=== PATIENT | male | born 1995 | race Caucasian/White ===

== ENCOUNTER 2023-06-18 02:27 | Emergency (ER) | payer OTHER, SELFPAY ==
--- NOTE | ~2023-06-18 | XR_ITS ---
Left wrist Technique: PA, oblique, lateral, and ulnar deviation views were obtained. Clinical History: Pain Findings: No acute fracture or dislocation is seen. Osseous alignment is anatomic. Joint spaces are p reserved. Soft tissues are unremarkable. Impression: Unremarkable left wrist radiographs. Reviewed, dictated and finalized at location . Impression: Unremarkable left wrist radiographs.
[2023-06-18 02:30] VITALS: BP 116/76; PULSE 64; RESP 15; TEMP 36.4; O2SAT 100
--- NOTE | 2023-06-18 03:07 | ED.GENADULT ---
HPI - General Adult General Chief complaint: Extremity Injury, Upper Stated complaint: L wrist pain Time Seen by Provider: 06/18/23 02:44 History of Present Illness HPI narrative: Patient 27-year-old gentleman who presents the emergency department with chief complaint of left wrist pain. The patient reports that he injured his wrist about a month ago when playing soccer where he hyperextended his wrist the patient states that it was starting to get little bit better he had been using a compression type wrist brace and noticed over the last several days and has been using it more his wrist started to hurt more patient reports that the pain is worse with movement and improved with rest. Related Data Allergies Allergy/AdvReac Type Severity Reaction Status Date / Time No Known Allergies Allergy Verified 06/18/23 02:34 Review of Systems Review of Systems: A 10 system review of systems was completed on the patient and is negative except for what is stated in the HPI. Nursing and ancillary documentation was reviewed. Exam Narrative: GENERAL: Well-appearing, well-nourished, and in no acute distress. HEAD: Normocephalic, atraumatic. EYES: PERRLA and EOMI. ENT: Nares clear, no rhinorrhea or epistaxis. Mucous membranes moist. NECK: Supple. CHEST: Clear to auscultation. No respiratory distress. HEART: Regular rate and rhythm. No murmur heard. Normal peripheral pulses. ABDOMEN: Soft, nontender, nondistended, normal active bowel sounds. EXTREMITIES: Normal range of motion in all extremities except for left wrist. There is tenderness to palpation in the anatomical snuffbox . No edema. SKIN: Warm, dry, no rash. NEURO: No focal deficits. Alert and oriented x3. PSYCH: Normal mood and affect. Course Vital Signs Vital signs: Vital Signs Temperature 36.4 C 06/18/23 02:30 Pulse Rate 64 06/18/23 02:30 Respiratory Rate 15 06/18/23 02:30 Blood Pressure 116/76 06/18/23 02:30 Pulse Oximetry 100 06/18/23 02:30 Oxygen Delivery Room Air 06/18/23 02:30 Temperature 36.4 C 06/18/23 02:30 Pulse Rate 64 06/18/23 02:30 Respiratory Rate 15 06/18/23 02:30 Blood Pressure 116/76 06/18/23 02:30 Pulse Oximetry 100 06/18/23 02:30 Oxygen Delivery Room Air 06/18/23 02:30 Medical Decision Making MDM Narrative Medical decision making narrative: Differential diagnosis includes wrist sprain, scaphoid fracture, -X-ray of the left wrist showed no evidence of displaced fracture. Given the patient's significant amount of pain and tenderness in the anatomical snuffbox a thumb spica was applied in the emergency department the patient will be referred to orthopedics for reevaluation Vital Signs Vital Signs: Vital Signs Temperature 36.4 C 06/18/23 02:30 Pulse Rate 64 06/18/23 02:30 Respiratory Rate 15 06/18/23 02:30 Blood Pressure 116/76 06/18/23 02:30 Pulse Oximetry 100 06/18/23 02:30 Oxygen Delivery Room Air 06/18/23 02:30 Temperature 36.4 C 06/18/23 02:30 Pulse Rate 64 06/18/23 02:30 Respiratory Rate 15 06/18/23 02:30 Blood Pressure 116/76 06/18/23 02:30 Pulse Oximetry 100 06/18/23 02:30 Oxygen Delivery Room Air 06/18/23 02:30 Discharge Plan Discharge Clinical Impression: Sprain and strain of wrist Patient Disposition: Home, Self-Care Condition: Stable Instructions: Antibiotic Form, Wrist Injury (ED), How to Use a Sling (ED), Splint Care (ED) Additional Instructions: The x-ray did not show a displaced fracture but you are tender in an area of the wrist that can sometimes have an occult fracture. A splint was applied he will be referred to orthopedics and will need a reexamination and possible repeat x-ray in the near future Prescriptions: New ibuprofen 800 mg tablet 800 mg PO TID PRN (Reason: pain) Qty: 30 0RF Follow-up/Referrals: Ora,Nenita Cleaning APRN [Primary Care Provider] - Sanjay Winston MD [Physician] -
[2023-06-18] MEDS: HYDROcodone/acetaminophen (*CRX) 5-325 MG TABLET 1 TAB PO (03:13)
== END 2023-06-18 03:34 | disposition home or self-care (01) ==
PROVIDERS: Emergency Provider Emergency Medicine; PCP Nurse Practitioner Family
DX: S63.502A Unspecified sprain of left wrist, initial encounter (principal); S66.912A Strain of unspecified muscle, fascia and tendon at wrist and hand level, left hand, initial encounter; X50.9XXA Other and unspecified overexertion or strenuous movements or postures, initial encounter; Y93.66 Activity, soccer
CPT/HCPCS: 29125; 73110; 99283; A4565; A9270